=== PATIENT | female | born 1985 | race Caucasian/White ===

== ENCOUNTER → 2022-03-16 | Emergency (ER) | payer OTHER ==
[~2022-03-16] VITALS: Ht 162.6 cm; Wt 59.0 kg
== END | disposition home or self-care (01) ==
LOC: ER 14:28
DX: K52.9 Noninfective gastroenteritis and colitis, unspecified (principal)

== ENCOUNTER 2025-04-24 19:00 | Emergency (ER) | payer OTHER ==
[~2025-04-24] VITALS: Ht 162.6 cm; Wt 61.2 kg
[2025-04-24] MEDS ORDERED: ZOLOFT50 MG (19:10)
[2025-04-24] MEDS ORDERED: SUMATRIPTAN SUCCINATE 6 MG/0.5 ML VIAL SUBCUTANEO STA (19:50)
[2025-04-24] MEDS ORDERED: DEXAMETHASONE SODIUM PHOSPHATE 4 MG/ML VIAL IV STA (19:51)
[2025-04-24] MEDS ORDERED: ONDANSETRON HCL 2 MG/ML VIAL IV STA (19:51)
[2025-04-24] MEDS ORDERED: TRIAMCINOLONE ACETONIDE 40 MG/ML VIAL IM STA (21:10)
[2025-04-24] MEDS ORDERED: METHYLPREDNISOLONE SOD SUCC 125 MG VIAL IM STA (22:17)
== END 2025-04-25 01:05 | disposition home or self-care (01) ==
LOC: ER 19:00
DX: G43.909 Migraine, unspecified, not intractable, without status migrainosus (principal); Z88.6 Allergy status to analgesic agent